=== PATIENT | female | born 1960 | race Caucasian/White ===

== ENCOUNTER 2024-12-30 06:10 | Day surgery (SDC) | payer MEDICAID ==
[2024-12-30] VITALS (14 sets, daily range): BP systolic 111–163; BP diastolic 56–89; PULSE 61–89; RESP 11–19; TEMP 98.4; O2SAT 93–96
[~2024-12-30] VITALS: Ht 160 cm; Wt 77.0 kg
[2024-12-30] MEDS ORDERED: ATOR20TA66 PO (06:58)
[2024-12-30] MEDS ORDERED: LINA290C PO (06:58)
[2024-12-30] MEDS ORDERED: CYCL-1 PO (06:58)
[2024-12-30] MEDS ORDERED: HYDR-3972 PO (06:58)
[2024-12-30] MEDS ORDERED: ISOS30TA84 PO (06:58)
[2024-12-30] MEDS ORDERED: CETI10TA14 PO (06:58)
[2024-12-30] MEDS ORDERED: VENL75CA61 PO (06:58)
[2024-12-30] MEDS ORDERED: NITR0.4T48 (06:58)
[2024-12-30] MEDS ORDERED: LISI20TA28 PO (06:58)
[2024-12-30] MEDS ORDERED: CARV25TA3 PO (06:58)
[2024-12-30] MEDS ORDERED: OXYB5TAB21 PO (06:58)
[2024-12-30] MEDS ORDERED: DOCO1CAP11 PO (07:00)
[2024-12-30] MEDS ORDERED: ASPI-1674 PO (07:00)
[2024-12-30 07:11] LABS: MEAN PLATELET VOLUME 8.5 FL (7.4-10.4); RED CELL DISTRIBUTION WIDTH 12.3 % (11.5-14.5)
--- NOTE | 2024-12-30 07:11 | ELECTROCARDIOGRAPH REPORT ---
[facility] Test Date: 2024-12-30 Test Time: 08:07:17 Pat Name: RADHA HSIEH Department: [facility] Patient ID: [id number] Room: Gender: F Grocery Clerk Checking: : 1960 Requested By: MARIE TONG Order Number: [id number] Reading MD: Dr. KHARI Smalls Measurements Intervals [place] Rate: 60 P: 85 [place]: 137 QRS: 80 QRSD: 103 T: 71 QT: 427 QTc: 427 Interpretive Statements Sinus rhythm Electronically Signed On 12-30-2024 17:48:[address] KHARI Smalls Please click the below link to view image of tracing.
[2024-12-30 07:20] LABS: CREATININE 0.95 MG/DL (0.40-0.90); INR 1.0 INR; TOTAL CARBON DIOXIDE 27.3 MMOL/L (24-32); eCRCL 51 ML/MIN; eGFR 60 ML/MIN
[2024-12-30] MEDS: sodium bicarbonate 1meq/ml syr 150 ML in dextrose 5%-water 1,000 ML IV ONE (07:31)
[2024-12-30] MEDS ORDERED: LIDOcaine 1% (10mg/ml) 2ml vial ONE (07:34)
[2024-12-30] MEDS ORDERED: verapamil 2.5 mg/ml inj IV ONE (07:34)
[2024-12-30] MEDS ORDERED: heparin 1,000unit/ml 10ml vial 10 ML ONE (07:34)
[2024-12-30] MEDS ORDERED: iohexol 350 MG/ML 50ML vial IV ONE (07:34)
[2024-12-30] MEDS ORDERED: fentaNYL/PF 50MCG/1 ML 2ML syringe ONE ×2 (07:49→08:54)
[2024-12-30] MEDS ORDERED: midazolam 1 mg/ML 2ml injection ONE ×3 (07:49→08:43)
[2024-12-30] MEDS ORDERED: nitroGLYCERIN 500mcg/5mL D5W 0 ML IV ONE (07:52)
[2024-12-30] MEDS ORDERED: LIDOcaine 1% 30ml preserv. free vial ONE (08:35)
[2024-12-30] MEDS ORDERED: HYDROcodone/acetaminophen 10/325mg tab PO PRN (10:00)
[2024-12-30] MEDS ORDERED: HYDROcodone/acetaminophen 5mg/325mg tablet PO PRN (10:00)
[2024-12-30] MEDS ORDERED: ondansetron/PF 4mg/2ml inj IV PRN (10:00)
--- NOTE | 2024-12-30 13:02 | CARDIOLOGY REPORT ---
DATE OF SERVICE: 12/30/2024 DICTATING PHYSICIAN: MARIE TONG, DO CARDIAC CATHETERIZATION REPORT CLINICAL HISTORY: This 64-year-old woman has had several episodes of chest pain compatible with angina pectoris. Symptoms have been relieved with sublingual nitroglycerin and isosorbide mononitrate seems to have abated tendency for recurrence. There is a prior history of smoking and use of amphetamines, which are now both discontinued. PROCEDURES PERFORMED: * Left heart catheterization. * Left ventriculography. * Selective coronary arteriography. * Forty-five minutes conscious sedation supervision. DESCRIPTION OF PROCEDURE: The patient was sedated with fentanyl and Versed. She was then prepared and draped in the usual manner. The patient did not have a palpable radial pulse. The right inguinal area was infiltrated with 1% lidocaine using a micropuncture set and a Seldinger technique, a 7-Mosotho sheath was placed in the common femoral artery. 3000 units of heparin were given. Left heart catheterization and left ventriculography were performed using a 6-Mosotho pigtail catheter. Coronary arteriography was performed using 6-Mosotho #4 left and right Kory catheters. The arterial sheath was removed and the access site was successfully Perclosed. RESULTS: HEMODYNAMIC DATA: The left ventricular end-diastolic pressure was 20 mmHg. There was no gradient across the aortic valve. LEFT VENTRICULOGRAM: The left ventriculogram was technically satisfactory. The visually estimated ejection fraction was 45% to 50%. There was no mitral regurgitation. There was no obvious calcification within the coronary arteries. CORONARY ARTERIOGRAPHY: The coronary arteriograms were technically satisfactory. The patient had a right dominant system. LEFT MAIN CORONARY ARTERY: The left main was a very long vessel that was unobstructed. There was no takeoff for the circumflex coronary artery (as will be apparent under the description of the right coronary). LEFT ANTERIOR DESCENDING CORONARY ARTERY: The LAD was a mwmnpr-qy-kmqwb vessel. There was a ilwnbf-pp-epqjg first diagonal taking its origin proximally. There was a similar sized wjbwsv-au-ncjge second diagonal taking its origin from the mid vessel. The third diagonal was tiny in size and there were very tiny-sized distal diagonal branches. There were no obstructive lesions in the left anterior descending coronary artery. RIGHT CORONARY ARTERY: The right coronary artery was a large main stem vessel. The posterior descending branch was a small caliber, but somewhat long vessel. There was a small first posterolateral and a medium-sized bifurcated second posterolateral. None of the main stem right coronary and the distal branches were free of obstructive disease. There is an anomalous origin circumflex coronary artery emanating from the proximal right coronary and providing a small-caliber multiple-branched single vessel to the upper obtuse marginal branch. There were no obstructive lesions in this anomalous circumflex coronary artery. CONCLUSIONS: 1. No evidence for obstructive coronary artery disease. 2. 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 3. Left ventricular function was reasonably good, but estimated at 45% to 50%. RECOMMENDATIONS: Ongoing medical therapy. MARIE TONG DO TID: [id number] RECEIPT: [id number] [facility]
== END 2024-12-30 13:50 | disposition home or self-care (01) ==
LOC: SSTAY O 06:10
PROVIDERS: ATTEND Internal Medicine Cardiovascular Disease
DX: I42.9 Cardiomyopathy, unspecified (principal); I08.0 Rheumatic disorders of both mitral and aortic valves; I13.0 Hypertensive heart and chronic kidney disease with heart failure and stage 1 through stage 4 chronic kidney disease, or unspecified chronic kidney disease; N18.9 Chronic kidney disease, unspecified; I50.9 Heart failure, unspecified; I27.20 Pulmonary hypertension, unspecified; J45.909 Unspecified asthma, uncomplicated; R07.9 Chest pain, unspecified; Z86.73 Personal history of transient ischemic attack (TIA), and cerebral infarction without residual deficits; Z85.41 Personal history of malignant neoplasm of cervix uteri; Z90.710 Acquired absence of both cervix and uterus; Z87.891 Personal history of nicotine dependence
CPT/HCPCS: 36415; 80048; 83735; 85025; 85610; 93005; 93458; C1760; J1644; J2003; J2250; J3010; J3490; J7030; J7070; Q0163; Q9967; 99152; 99153; C1894